=== PATIENT | female | born 1975 | race Caucasian/White ===

== ENCOUNTER 2021-05-16 07:03 | Emergency (ER) | payer MEDICAID, OTHER ==
[~2021-05-16] VITALS: Ht 152.4 cm; Wt 71.4 kg
[2021-05-16] MEDS ORDERED: normal saline 1000ml 1,000 ML IV ONE (07:30)
[2021-05-16] MEDS ORDERED: ketorolac tromethamine 15mg/ml inj. IV ONE (07:30)
[2021-05-16] MEDS ORDERED: iohexol 300mg/ml 100ml inj. ONE (07:45)
[2021-05-16 07:50] LABS: BASOPHILS # (AUTO) 0.1 X10'3 (0-0.2); BASOPHILS % (AUTO) 0.6 % (0-1); EOSINOPHILS # (AUTO) 0.2 X10'3 (0-0.9); EOSINOPHILS % (AUTO) 1.6 % (0-6); HEMATOCRIT 42.8 % (35.0-45.0); HEMOGLOBIN 14.1 g/dl (12.0-16.0); LYMPHOCYTES # (AUTO) 2.6 X10'3 (1.1-4.8); LYMPHOCYTES % (AUTO) 22.2 % (21-51); MEAN CORPUSCULAR HEMOGLOBIN 29.3 PG (27.0-31.0); MEAN CORPUSCULAR VOLUME 88.7 FL (78-98); MEAN PLATELET VOLUME 8.6 FL (7.4-10.4); MONOCYTES % (AUTO) 8.9 % (2-12); NEUTROPHILS # (AUTO) 7.8 X10'3 (1.8-7.7); NEUTROPHILS % (AUTO) 66.7 % (42-75); PLATELET COUNT 349 X10'3 (140-440); RED BLOOD COUNT 4.83 X10'6 (4.20-5.60); WHITE BLOOD COUNT 11.7 X10'3 (4.5-11.0)
[2021-05-16 08:01] LABS: ALANINE AMINOTRANSFERASE 25 U/L (12-78); ALBUMIN 3.2 G/DL (3.4-5.0); ALBUMIN/GLOBULIN RATIO 0.7 (1.1-1.5); ALKALINE PHOSPHATASE 115 IU/L (46-116); ANION GAP 13 (8-16); ASPARTATE AMINO TRANSFERASE 12 U/L (10-37); BILIRUBIN,TOTAL 0.4 MG/DL (0.1-1.0); BLOOD UREA NITROGEN 14 MG/DL (7-18); CALCIUM 8.9 MG/DL (8.5-10.1); CHLORIDE 106 MMOL/L (99-107); CREATININE 0.61 MG/DL (0.40-0.90); GLUCOSE 210 MG/DL (70-104); LIPASE < 50 U/L (73-393); SODIUM 141 MMOL/L (135-145); TOTAL CARBON DIOXIDE 22.2 MMOL/L (24-32); TOTAL PROTEIN 7.9 G/DL (6.4-8.2); eGFR > 90 ML/MIN
[2021-05-16 08:28] LABS: CLARITY,URINE CLOUDY (Clear); COLOR,URINE YELLOW (Yellow); GLUCOSE, URINE >=1000 mg/dl (Neg); KETONES,URINE 15 mg/dl (Neg); LEUKOCYTE ESTERASE ,URINE SMALL (Neg); NITRITES, URINE POSITIVE (Neg); OCCULT BLOOD,URINE LARGE (Neg); PROTEIN,URINE 100 mg/dl (Neg); UROBILINOGEN,URINE 0.2 E.U/dL (0.2-1.0)
[2021-05-16 08:29] LABS: URINE HCG NEGATIVE (NEG)
[2021-05-16] MEDS ORDERED: MESSAGE TO NURSING PO SCH (08:30)
[2021-05-16 08:35] LABS: UA COLLECTION TYPE CLN CATCH MIDSTREAM
[2021-05-16] MEDS ORDERED: CefTRIAXone/D5W-Rocephin 1gm 50 ML IV ONE (08:40)
[2021-05-16 08:44] LABS: WBC,URINE TNTC /HPF (0-4)
[2021-05-16 08:45] LABS: BACTERIA,URINE 2+ /HPF (Neg); RBC,URINE 50-100 /HPF (0-2); SQUAMOUS EPITHELIAL CELL,UR MODERATE /LPF (FEW)
[2021-05-16] MEDS ORDERED: FLUC150T66 PO (08:58)
[2021-05-16] MEDS ORDERED: CEFD300C3 PO (08:58)
[2021-05-16 09:41] VITALS: BP 146/88
== END 2021-05-16 09:42 | disposition home or self-care (01) ==
LOC: ER 07:03
DX: N12 Tubulo-interstitial nephritis, not specified as acute or chronic (principal); R06.02 Shortness of breath; E11.9 Type 2 diabetes mellitus without complications; Z90.49 Acquired absence of other specified parts of digestive tract; Z98.891 History of uterine scar from previous surgery; Z98.51 Tubal ligation status; Z72.89 Other problems related to lifestyle
CPT/HCPCS: 36415; 74177; 80053; 81001; 81025; 83690; 85025; 87077; 87088; 87186; 96361; 96365; 96375; 99285; J0696; J1885; J7030; Q9967